=== PATIENT | male | born 1970 | race African-American/Black ===

== ENCOUNTER 2022-09-13 07:33 | Emergency (ER) | payer OTHER ==
[~2022-09-13] VITALS: Ht 193 cm; Wt 118.0 kg
[2022-09-13] MEDS ORDERED: MAGNESIUM/ALUMINUM HYDROXIDE/SIMETHICONE 30ML UDC PO STA (08:03)
[2022-09-13 09:28] LABS: BASOPHILS % 0.7 % (0.0-2.0); EOSINOPHILS % 0.3 % (0.0-5.0); HEMATOCRIT. 45.4 % (42.0-52.0); HEMOGLOBIN. 15.3 g/dL (14.0-18.0); MEAN PLATELET VOLUME 9.9 fl (7.4-10.4); MONOCYTES % 9.6 % (2.0-8.0); NEUTROPHILS % 61.4 % (40.0-76.0); PLATELET 208 x1000/uL (130-400); RED BLOOD CELL COUNT 5.28 mill/uL (4.7-6.1); RED CELL DISTRIBUTION WIDTH 14.5 % (11.6-14.6)
[2022-09-13 09:37] LABS: CHLORIDE 104 mEq/L (98-107)
[2022-09-13] MEDS ORDERED: LORAZEPAM 0.5MG TABLET PO ONE (09:45)
[2022-09-13] MEDS ORDERED: KETOROLAC 60MG/2ML VIAL IM ONE (09:45)
[2022-09-13 09:48] LABS: ETHANOL BLOOD < 10 mg/dL
[2022-09-13 10:30] VITALS: BP 182/105
[2022-09-13] MEDS ORDERED: MORPHINE SULFATE 10 MG/ML CPJ IM ONE (10:45)
[2022-09-13] MEDS ORDERED: IBUP-2029 MT (10:50)
== END 2022-09-13 12:26 | disposition home or self-care (01) ==
LOC: ER 07:33
DX: R10.13 Epigastric pain (principal)
CPT/HCPCS: 36415; 74176; 80053; 80320; 83690; 85025; 93005; 96372; 99285; J1885; J2270; Z7610; G0480